=== PATIENT | female | born 1995 | race Two or more races ===

== ENCOUNTER 2020-06-15 02:49 | Outpatient (CLI) | payer OTHER | END 2020-06-15 17:00 | disposition home or self-care (01) | LOC: OBS/DEL 02:49 | PROVIDERS: ATTEND Obstetrics & Gynecology | DX: O23.43 Unspecified infection of urinary tract in pregnancy, third trimester (principal); Z3A.20 20 weeks gestation of pregnancy ==

== ENCOUNTER 2020-10-24 14:30 | Inpatient (IN) | payer OTHER ==
[~2020-10-24] VITALS: Ht 149.9 cm; Wt 2.7 kg
[2020-11-02] MEDS ORDERED: PRENATAL TABLE1 EAC1 PO (11:30)
== END 2020-11-04 13:10 | disposition home or self-care (01) | DRG 788 ==
LOC: LDR 11-02 11:03 → OB/GYN 11-02 11:03 → LDR 11-02 11:15 → OB/GYN 11-02 14:30 → O/R 11-02 21:16 → OB/GYN 11-03 01:01
PROVIDERS: ADMIT Obstetrics & Gynecology; ATTEND Obstetrics & Gynecology
PROC: 10907ZC Drainage of Amniotic Fluid, Therapeutic from Products of Conception, Via Natural or Artificial Opening (ICD-10-PCS; 2020-11-02)
PROC: 3E033VJ Introduction of Other Hormone into Peripheral Vein, Percutaneous Approach (ICD-10-PCS; 2020-11-02)
PROC: 4A1HXFZ Monitoring of Products of Conception, Cardiac Rhythm, External Approach (ICD-10-PCS; 2020-11-02)
PROC: 10D00Z1 Extraction of Products of Conception, Low, Open Approach (ICD-10-PCS; principal; 2020-11-02 20:00)
DX: O62.1 Secondary uterine inertia (principal); O48.0 Post-term pregnancy; Z3A.40 40 weeks gestation of pregnancy; Z37.0 Single live birth; Z20.822 Contact with and (suspected) exposure to COVID-19

== ENCOUNTER 2020-11-08 04:25 | Emergency (ER) | payer OTHER ==
[~2020-11-08] VITALS: Ht 149.9 cm; Wt 68.0 kg
[~2020-11-08 04:25] MED LIST: PRENATAL TABLE1 EAC1 PO
== END 2020-11-08 08:44 | disposition home or self-care (01) ==
LOC: ER 04:25
DX: O90.0 Disruption of cesarean delivery wound (principal)